=== PATIENT | male | born 1955 | race Caucasian/White ===

== ENCOUNTER 2022-01-09 | Emergency (ER) | payer MEDICARE, MEDICAID, SELFPAY ==
--- NOTE | ~2022-01-09 | XR_ITS ---
EXAMINATION: XR SHOULDER, RIGHT XR HUMERUS, RIGHT CLINICAL INFORMATION: Fall with pain COMPARISON: None TECHNIQUE: 3 views of the right shoulder. 2 views, 3 images of the right humerus. FINDINGS: There is a comminuted proximal humeral diaphyseal fracture. There is posterolateral angulation of the distal fragment. Fracture lines extend proximally to the humeral neck. The glenohumeral joint remains aligned. The acromioclavicular joint is intact. Alignment at the elbow is maintained. The visualized ribs are intact. The visualized lung is clear. XR/XR humerus RT IMPRESSION: Comminuted proximal humeral diaphyseal fracture.
--- NOTE | ~2022-01-09 | XR_ITS ---
EXAMINATION: XR SHOULDER, RIGHT XR HUMERUS, RIGHT CLINICAL INFORMATION: Fall with pain COMPARISON: None TECHNIQUE: 3 views of the right shoulder. 2 views, 3 images of the right humerus. FINDINGS: There is a comminuted proximal humeral diaphyseal fracture. There is posterolateral angulation of the distal fragment. Fracture lines extend proximally to the humeral neck. The glenohumeral joint remains aligned. The acromioclavicular joint is intact. Alignment at the elbow is maintained. The visualized ribs are intact. The visualized lung is clear. XR/XR shoulder RT min 2V IMPRESSION: Comminuted proximal humeral diaphyseal fracture.
--- NOTE | ~2022-01-09 | XR_ITS ---
EXAMINATION: XR KNEE, RIGHT CLINICAL INFORMATION: Fall with pain COMPARISON: None TECHNIQUE: Four views of the right knee. FINDINGS: Total right knee arthroplasty. The femoral component articulates appropriately with the tibial and patellar components. There is no periprosthetic lucency or fracture. No joint effusion. Posterior ossification from the proximal tibia noted. XR/XR knee RT 4V IMPRESSION: Total right knee arthroplasty without evidence of failure.
--- NOTE | ~2022-01-09 | CT_ITS ---
EXAMINATION: CT HEAD WITHOUT CONTRAST CLINICAL INFORMATION: Fall COMPARISON: None. TECHNIQUE: Contiguous axial imaging was performed from the skull base to vertex without intravenous contrast. This CT examination was performed using dose optimization techniques as appropriate, variously including the following: * Automated exposure control * Adjustment of mA and/or kV according to patient size (this includes techniques or standardized protocols for targeted exams where dose is matched to indication/reason for exam; i.e. extremities or head) Use of iterative reconstruction technique DLP: 667 mGy-cm. FINDINGS: There is no evidence of acute intracranial hemorrhage or territorial infarction. No abnormal mass effect or midline shift is seen. Dillon to white matter differentiation is well preserved. No extra-axial fluid collections are identified. No hydrocephalus. No significant volume loss. There is no abnormal attenuation within the brain parenchyma. No acute osseous or soft tissue abnormality. 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 The mastoid air cells and visualized portions of the paranasal sinuses are well aerated. CT/CT head/brain wo con IMPRESSION: No acute intracranial pathology.
[2022-01-09 00:13] VITALS: BP 140/80; PULSE 82; O2SAT 97
[2022-01-09 00:15] VITALS: BP 101/63; PULSE 62; RESP 16; TEMP 37.3; O2SAT 96; BMI 22.1
--- NOTE | 2022-01-09 01:42 | ED.FALL ---
HPI - Fall General Chief Complaint: Fall Stated Complaint: right shoulder and elbow pain due to fall Time Seen by Provider: 01/09/22 00:41 Source: patient and other Mode of arrival: EMS History of Present Illness HPI Narrative: 66-year-old male with known Parkinson's presents via EMS after he fell at home when he tried to grab a bar on getting up from the toilet, missed it and fell onto his right knee and right shoulder. He denies any head strike or loss of consciousness and denies any anticoagulation. He currently complains of pain to the right arm. Related Data Home Medications Medication Instructions Recorded Confirmed carbidopa 25 mg-levodopa 100 mg 1.5 tab PO QID tab 11/25/21 tablet (Sinemet) entacapone 200 mg tablet 200 mg PO QID 11/25/21 lorazepam 0.5 mg tablet (Ativan) 0.5 mg PO BEDTIME PRN 11/25/21 pimavanserin 34 mg capsule 34 mg PO DAILY 11/25/21 (Nuplazid) Previous Rx's Medication Instructions Recorded ketorolac 10 mg tablet 10 mg PO Q6H PRN 5 Days #20 tab 01/09/22 Allergies Allergy/AdvReac Type Severity Reaction Status Date / Time No Known Allergies Allergy Unverified 07/11/20 19:36 [No Known Allergies*] Review of Systems Review of Systems: Pertinent positives and negatives as stated in HPI 10 point review of systems is otherwise negative. PMFSH Past Medical History Source: nursing notes reviewed Physical Exam Vital Signs: Vital Signs: Last Vital Signs Temp 99.1 F 01/09/22 00:15 Pulse 62 01/09/22 00:15 Resp 16 01/09/22 00:15 BP 101/63 01/09/22 00:15 Pulse Ox 96 01/09/22 00:15 BMI result Body Mass Index 22.1 VITAL SIGNS: Reviewed. GENERAL: Well developed, well nourished, in no acute distress. HEAD: Normocephalic/atraumatic EYES: PERRLA, EOMI EARS: Ext canals without abnormality OROPHARYNX: no oral lesions noted, posterior pharynx clear LUNGS: Normal breath sounds. No adventitious sounds or accessory muscle use. SpO2<96>;CHEST WALL: No crepitus or deformity noted, no clavicular deformity noted CARDIOVASCULAR: Regular rate and rhythm without noted murmurs ABDOMEN: Soft, non-tender, non-distended with bowel sounds. MUSCULOSKELETAL: No tenderness, deformities, or effusions noted on gross inspection. EXTREMITIES: No cyanosis, clubbing or edema;RUE: Deformity noted to arm, sensation intact, palpable ulnar and radial pulse with good capillary refill SKIN: Inspection of the skin reveals no rashes NEUROLOGIC: Alert and oriented x 4. Strength and sensation to light touch were grossly intact x 4. Course Course Course Narrative: 66-year-old male with history and clinical presentation consistent with mechanical fall without head strike or LOC and noted right upper extremity deformity and on review of all investigation is noted to have a comminuted midshaft fracture of the right humerus without noted neurovascular deficits. This case was discussed briefly with the orthopedist on-call who recommends conservative treatment with sling. Patient given pain medication and discharged home in stable condition with instructions to follow up with the orthopedic office in the morning and further discuss conservative versus surgical intervention. Discharge Plan Discharge Clinical Impression: Comminuted right humeral fracture Patient Disposition: Home, Self-Care Instructions: Arm Fracture in Adults (ED), How to Use a Sling (ED) Additional Instructions: 1. Resume all home medications as prescribed. 2. Tylenol 1000 mg, orally, every 6 hours as needed for pain control. Do not exceed 4000 mg within 24 hours. 3. Apply ice to unexposed skin for 10 15 minutes, 3 to 4 times a day. 4. Please call the orthopedic office in the morning, the referral is provided to below. Return to the ER for worsening symptoms. Prescriptions: New ketorolac 10 mg tablet 10 mg PO Q6H PRN (Reason: pain) 5 Days Qty: 20 0RF Rx Instructions: Patient received Toradol here in the emergency room. No Action lorazepam [Ativan] 0.5 mg tablet 0.5 mg PO BEDTIME PRN0RF entacapone 200 mg tablet 200 mg PO QID 0RF Rx Instructions: administer at the same time as l-dopa/carbidopa dose Nuplazid 34 mg capsule 34 mg PO DAILY 0RF carbidopa-levodopa [Sinemet] 25-100 mg tablet 1.5 tab PO QID 0RF Referrals: Mak Turner MD [Physician] - 2 days (Comminuted right humeral fracture, neurovascular intact, patient has history of Parkinson's.)
[2022-01-09] MEDS: Ketorolac Tromethamine 15 MG/ML VIAL IM (02:39)
[2022-01-09] MEDS: Acetaminophen 325 MG TABLET 975 MG PO (02:39)
== END 2022-01-09 03:39 | disposition home or self-care (01) ==
LOC: HO.ED 02:18
PROVIDERS: Emergency Provider Student in an Organized Health Care Education/Training Program; PCP Nurse Practitioner Family
DX: S49.091A Other physeal fracture of upper end of humerus, right arm, initial encounter for closed fracture (principal); W18.12XA Fall from or off toilet with subsequent striking against object, initial encounter; Y93.89 Activity, other specified; Y92.012 Bathroom of single-family (private) house as the place of occurrence of the external cause; Y99.9 Unspecified external cause status
CPT/HCPCS: 70450; 73030; 73060; 73564; 96372; 99283; 99284; J1885

== ENCOUNTER → 2022-01-12 09:21 | Outpatient (BNVA) | payer MEDICARE, MEDICAID, SELFPAY | PROVIDERS: PCP Nurse Practitioner Family; Visit Provider Physician Assistant | DX: S42.301A Unspecified fracture of shaft of humerus, right arm, initial encounter for closed fracture (principal) | CPT/HCPCS: 99202 ==

== ENCOUNTER 2022-01-12 10:39 | Emergency (ER) | payer MEDICARE, MEDICAID, SELFPAY | END 2022-01-12 12:20 | disposition left against medical advice (07) | PROVIDERS: Emergency Provider Emergency Medicine; PCP Nurse Practitioner Family | DX: Z02.2 Encounter for examination for admission to residential institution (principal) ==

== ENCOUNTER → 2022-01-15 13:33 | Outpatient (BNVA) | payer MEDICARE, MEDICAID, SELFPAY | PROVIDERS: PCP Psychiatry & Neurology Neurology; Visit Provider Psychiatry & Neurology Neurology | DX: G20 Parkinson's disease (principal); R44.3 Hallucinations, unspecified; Z91.81 History of falling; Z79.899 Other long term (current) drug therapy | CPT/HCPCS: 99212 ==

== ENCOUNTER 2022-01-20 08:26 | Emergency (ER) | payer MEDICARE, MEDICAID, SELFPAY ==
--- NOTE | ~2022-01-20 | CT_ITS ---
EXAMINATION: CT ABDOMEN AND PELVIS WITHOUT CONTRAST CLINICAL INFORMATION: Multiple falls. Question hip fracture. COMPARISON: None TECHNIQUE: Multidetector volumetric imaging was performed from the superior aspect of the liver through the pubic symphysis. Sagittal and coronal reformatted images were obtained on the technologist's workstation. This CT examination was performed using dose optimization techniques as appropriate, variously including the following: *Automated exposure control *Adjustment of mA and/or kV according to patient size (this includes techniques or standardized protocols for targeted exams where dose is matched to indication/reason for exam; i.e. extremities or head) *Use of iterative reconstruction technique DLP: 987 mGy-cm FINDINGS: LUNG BASES: The visualized lung bases are unremarkable. LIVER, GALLBLADDER, AND BILIARY TREE: There is a 1 cm low-attenuation lesion in the lateral segment of the left lobe of the liver, axial image 18 series 33, probably representing a cyst. There are several other smaller liver lesions that are difficult to characterize but may represent cysts as well in the central liver axial image 24 and near the gallbladder, axial image 29 and 36. The gallbladder is unremarkable. There is no biliary duct dilatation. PANCREAS: Unremarkable. SPLEEN: Unremarkable. ADRENAL GLANDS: Unremarkable. KIDNEYS AND URETERS: The kidneys are normal in size, shape, and attenuation. No hydronephrosis, hydroureter, or calculi seen. No perinephric stranding. BLADDER: Unremarkable. GASTROINTESTINAL TRACT: There is stool throughout the colon suggestive of constipation. There is evidence of diverticulosis. Small and large bowel is otherwise normal. The appendix is normal. The stomach is normal. No ascites or free air is seen. ABDOMINAL WALL: No significant hernia is appreciated. LYMPH NODES: Normal. VASCULAR: There is evidence of atherosclerotic disease. No aneurysm is seen. PELVIC VISCERA: Unremarkable. OSSEOUS STRUCTURES: There is a 7 mm anterior subluxation of L3 with respect to L4. There is question of unilateral right L3 pars defect versus old right L3-L4 facet fracture. There is facet arthritis at this level. There is degenerative disc disease at L3-L4. There is slight loss of height of the superior endplate of the L3 vertebral body suggestive of a mild old compression fracture. There are transverse sclerotic lines in the L3 and L4 vertebral bodies suggestive of old fractures. There is also question of mild old L2 and L5 vertebral body compression fractures versus Schmorl's nodes. Recent-appearing mild compression fracture of the superior endplate of the T12 vertebral body. There is mild scoliosis/curvature of the lumbar spine to the right. No pelvic or hip fracture is seen. CT/CT abdomen pelvis wo con IMPRESSION: No hip or pelvic fracture is seen. 7 mm anterior subluxation of L3 with respect to L4. Degenerative disc disease, facet arthritis at this level and old L3 and L4 vertebral body fractures, question involving the right L3-L4 facet joint. Mild old-appearing compression fracture of the superior endplate of the L3 vertebral body. Mild old-appearing L1 and L4 vertebral body superior endplate compression fractures versus Schmorl's nodes. Recent-appearing mild compression fracture of the superior endplate of the T12 vertebral body. Constipation. Diverticulosis. Atherosclerotic disease. Fleischner guidelines were followed.
--- NOTE | ~2022-01-20 | CT_ITS ---
EXAMINATION: CT CERVICAL SPINE WITHOUT CONTRAST CLINICAL INFORMATION: Multiple falls COMPARISON: None TECHNIQUE: Axial images through the cervical spine without contrast. Sagittal and coronal reconstructions on the technologist workstation were performed. This CT examination was performed using dose optimization techniques as appropriate, variously including the following: *Automated exposure control *Adjustment of mA and/or kV according to patient size (this includes techniques or standardized protocols for targeted exams where dose is matched to indication/reason for exam; i.e. extremities or head) *Use of iterative reconstruction technique DLP: 306 mGy-cm FINDINGS: There is increased cervical kyphosis. Bone alignment is otherwise normal. There is degenerative spondylosis and degenerative disc disease at C3-C4 C4-C5 and C5-C6. There are degenerative changes at the C1 dens articulation. No fracture or dislocation is seen. Prevertebral soft tissues are normal. CT/CT cervical spine wo con IMPRESSION: Degenerative changes. No fracture or dislocation seen. Fleischner guidelines were followed.
--- NOTE | ~2022-01-20 | CT_ITS ---
EXAMINATION: CT HEAD WITHOUT CONTRAST CLINICAL INFORMATION: Multiple falls COMPARISON: Previous head CT 01/09/2022 TECHNIQUE: Contiguous axial imaging was performed from the skull base to vertex without intravenous administration of contrast. This CT examination was performed using dose optimization techniques as appropriate, variously including the following: *Automated exposure control *Adjustment of mA and/or kV according to patient size (this includes techniques or standardized protocols for targeted exams where dose is matched to indication/reason for exam; i.e. extremities or head) *Use of iterative reconstruction technique DLP: 655 mGy-cm FINDINGS: There is no evidence of acute intracranial hemorrhage or territorial infarction. No abnormal mass effect or midline shift is seen. Dillon to white matter differentiation is well preserved. No extra-axial fluid collections are identified. The ventricles are normal in size. There is no abnormal attenuation within the brain parenchyma. The osseous structures and soft tissues are normal. 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 The mastoid air cells and visualized portions of the paranasal sinuses are otherwise clear.. CT/CT head/brain wo con IMPRESSION: Unremarkable exam.
--- NOTE | ~2022-01-20 | CT_ITS ---
EXAMINATION: CT CHEST WITHOUT CONTRAST CLINICAL INFORMATION: Fall. Bruising over right upper ribs. COMPARISON: None. TECHNIQUE: Multidetector volumetric CT imaging of the chest was done. Axial MIP volume rendering provided. Sagittal and coronal reformatted images were obtained. This CT examination was performed using dose optimization techniques as appropriate, variously including the following: *Automated exposure control *Adjustment of mA and/or kV according to patient size (this includes techniques or standardized protocols for targeted exams where dose is matched to indication/reason for exam; i.e. extremities or head) *Use of iterative reconstruction technique DLP: 396 mGy-cm FINDINGS: LUNGS: There is subsegmental atelectasis at the lung bases. The lungs are otherwise clear. MEDIASTINUM: The mediastinum is normal. PLEURA: There is no pleural effusion. No pleural mass or thickening. No pneumothorax. AXILLA: No lymphadenopathy. There is mild swelling of the soft tissues of the right posterior chest wall. OSSEOUS STRUCTURES: There are old bilateral rib fractures. No acute rib fracture is seen. There is an acute compression fracture of the left superior endplate of the T12 vertebral body. There is a mild T7 vertebral body compression fracture versus Schmorl's node. This does not appear acute. CT/CT chest wo con IMPRESSION: Old bilateral rib fractures. No acute rib fracture seen. Recent-appearing mild compression fracture of the left superior endplate of the T12 vertebral body. Mild T7 vertebral body compression fracture versus Schmorl's node. This does not appear acute. Fleischner guidelines were followed.
[2022-01-20 08:38] VITALS: BP 146/78; BP 164/92; PULSE 74; PULSE 75; RESP 16; TEMP 36.4; O2SAT 96; BMI 20.8
--- NOTE | 2022-01-20 09:00 | ED_ITS ---
HPI - General Adult General Chief complaint: Fall Stated complaint: FALLS,NO INJURY,NO THINNERS PER EMS Time Seen by Provider: 01/20/22 08:41 Source: patient Mode of arrival: ambulatory Limitations: no limitations History of Present Illness HPI narrative: 66-year-old male with past medical history of severe Parkinson's causing abnormal gait, hallucinations at baseline, and humural right shaft closed fracture occurring 7 days ago brought by for jail or short-term rehab placement. Girlfriend states patient can no longer take care of himself due to severe Parkinson's. She states surgeon recommend patient come to the for jail or short-term rehab placement couple days ago but due to long wait in the ED she apprehensive and took the patient home but now realizes patient needs 24 hour care. She states Parkinson's has cause severe abnormal gait which caused him to fall multiple times. She states she got patient's hospital bed, toilet needs room has cameras all over in his room patient still falls multiple times. She states this morning she found patient sitting on the toilet and was stuck in the toilet chair not able to get up on his own due to Parkinson's. She states patient was not supposed to go to the bathroom on his own but due to Parkinson's has to frequently gets up from the bed for urinary urgency and prefers to go to the bathroom instead of using the portable toilet in his bed. She states since patient was seen in the ED he has had multiple falls. She states last visit patient had humeral fracture 7 days ago. Patient has a new bruise on right chest wall from fall couple of days ago. She states patient also been constipated for the past 12 days. Related Data Home Medications Medication Instructions Recorded Confirmed pimavanserin 34 mg capsule 34 mg PO DAILY 11/25/21 01/20/22 (Nuplazid) acetaminophen 325 mg tablet 650 mg PO Q6H PRN 01/20/22 01/20/22 (Tylenol) carbidopa 25 mg-levodopa 100 mg 1.5 tab PO QID 01/20/22 01/20/22 tablet naproxen 500 mg tablet 1 tab PO BID 01/20/22 01/20/22 Previous Rx's Medication Instructions Recorded oxycodone 5 mg tablet 5 mg PO Q6H PRN 7 Days #42 tab 01/12/22 entacapone 200 mg tablet 200 mg PO QID #120 tab 01/15/22 Allergies Allergy/AdvReac Type Severity Reaction Status Date / Time No Known Allergies Allergy Verified 01/15/22 13:39 [No Known Allergies*] Review of Systems Review of Systems: Frequent falls. Requesting rehab Yes all other systems a re reviewed and are negative [facility] Past Medical History Medical History (Updated 01/20/22 @ 18:31 by CAYLA Landin) Falls Hallucinations Parkinson disease Social History Social History Patient Tobacco Use Status: Former Tobacco user Smoked in Last 30 Days: No Use of substances other than those prescribed or required for medical reasons: Yes Substance Use Type: Marijuana Advance Directives: No Advance Directives Information Provided: Yes Current occupational status: disabled Current occupation: rt [employer] Physical Exam ED Vital Signs: Vital Signs - 24 hr 01/20/22 08:38 01/20/22 09:56 01/20/22 12:39 Temperature 97.6 F 97.6 F Pulse Rate 75 65 79 Respiratory Rate 16 16 18 Blood Pressure 146/78 H 132/76 131/69 Pulse Oximetry 96 98 97 01/20/22 14:26 01/20/22 17:41 Temperature 97.7 F Pulse Rate 85 81 Respiratory Rate 18 16 Blood Pressure 113/65 105/54 L Pulse Oximetry 96 98 BMI result Body Mass Index 20.8 Const General: cooperative, healthy appearing, comfortable, no acute distress, well developed, alert, awake and Physically active Orientation/consciousness: patient oriented x3 HENMT Head: Yes normal to inspection, Yes No palpable skull fracture present, Yes normocephalic, Yes atraumatic and No abrasion Eyes General: appearance normal, both eyes and all related structures Neck Neck: Yes normal visual inspection, Yes full ROM, Yes no lymphadenopathy, Yes no meningeal signs, Yes trachea midline, Yes supple, No anterior neck swelling and No tender Chest Chest palpation & inspection: normal inspection of the chest Chest/axillae images: 1. Positive for ecchymosis and tenderness on palpation Resp Effort & Inspection: normal respiratory effort and able to speak in complete sentences Auscultation: clear to auscultation bilaterally Cardio Jugular venous distension: no JVD Heart sounds: S1 normal heart sound present and S2 normal heart sound present GI Inspection: Yes normal to inspection and No abdominal wall ecchymosis Palpation (GI): Soft to palpation, not firm, nontender, no guarding and not rigid General: No CVA tenderness and Yes no CVA tenderness Back/Spine/Pelvis Back: no CVA tenderness, No CVA tenderness and No back tenderness Skin General skin exam: no rashes or lesions noted and elasticity normal Neuro Other: Negative for any neuro deficits. Negative slurred speech. Negative facial droop. negative pronator drift. Equal strength in extremities. General: patient oriented x3, gait normal, tone normal, no meningeal signs and CN's II-XI intact bilaterally Cranial nerves: Yes CN's II-XII intact bilaterally Extrem Other: All other extremities normal and negative for signs of trauma endovascular/motor/neuro exam intact Shoulder/upper arm images: 1. Positive for ecchymosis from humeral fracture occurring 7 days ago done diagnose in this ED. Girlfriend states swelling has actually improved. Patient has complete range of motion of hands and fingers. Vascular/motor/neuro exam intact right upper extremity. Movement of forearm humerus limited due to humerus fracture and patient being in sling and compression stocking of upper extremity. Skin is not tight. Capillary refill of fingers intact. Not suspecting compartment syndrome. Psych Appearance: grossly normal, well kempt and not disheveled Course Course Course Narrative: Planus a patient of physical therapy case management evaluation. Will do basic labs. Patient well-appearing. Due to 's 8 frequent falls due to Parkinson's and abnormal gait will do imaging of head and neck for any injury. Patient has new right upper rib chest wall ecchymosis will do imaging of chest. Patient on any blood thinners. Abdomen negative for any ecchymosis or signs of trauma. Will do dry CT scan of abdomen and chest. Fluids ordered. Reevaluation(s) Reevaluation #1: Patient labs are normal. Patient evaluated by Physical therapy recommend short- term rehab. Patient does not want any long-term placement. Med rec started. Images shows 2 new thoracic spine fractures. Neuro exam intact of patient. Time: 18:19 Medical Decision Making MDM Narrative Medical decision making narrative: thoracic compression spine fractures Lab Data Result diagrams: 01/20/22 09:32 01/20/22 09:32 Labs: Lab Results 01/20/22 01/20/22 01/20/22 Range/Units 09:32 09:32 09:32 WBC 6.6 (4.8-10.8) X10*3/uL RBC 3.23 L (4.60-5.80) X10*6/uL Hgb 10.2 L (14.0-18.0) g/dl Hct 31.4 L (42.0-52.0) % MCV 97.2 (80.0-98.0) fL MCH 31.6 (27.0-33.0) pg MCHC 32.5 (31.0-36.0) g/dl RDW 13.8 (11.0-16.0) % Plt Count 254 (160-400) X10*3/uL MPV 9.0 L (9.4-12.4) fL Immature Gran % (Auto) 0.3 (0.0-0.4) % Neut % (Auto) 78.8 H (45-73) % Lymph % (Auto) 10.4 L (20-40) % [place] % (Auto) 8.5 (2-11) % Eos % (Auto) 1.4 (0-4) % Baso % (Auto) 0.6 (0-2) % Lymph # (Auto) 0.7 L (1.2-4.9) X10*3/uL [place] # (Auto) 0.6 (0.1-1.2) X10*3/uL Eos # (Auto) 0.1 (0.0-0.4) X10*3/uL Baso # (Auto) 0.0 (0.0-0.2) X10*3/uL Abs Immat Gran (auto) 0.02 (0.00-0.03) X10*3/uL Absolute Neuts (auto) 5.2 (2.0-8.3) x10*3/uL Absolute Nucleated RBC 0.000 (0.0-0.012) X10*3/uL Nucleated RBC % (auto) 0.0 (0.0-0.2) /100WBC Sodium 141 (135-145) mmol/L Potassium 4.2 (3.3-5.1) mmol/L Chloride 107 (96-108) mmol/L Carbon Dioxide 30 H (22-29) mmol/L Anion Gap 8 L (12-20) BUN 18 H (9-16) mg/dL Creatinine 0.70 (0.5-1.4) mg/dL Estim Creat Clear Calc 108.0 Estimated GFR > 60 Random Glucose 102 (60-115) mg/dL Calcium 8.9 (8.4-10.2) mg/dL Total Bilirubin 0.8 (0.0-1.0) mg/dL Direct Bilirubin 0.3 (0.0-0.5) mg/dL AST 9 (5-37) U/L ALT 7 (0-40) U/L Alkaline Phosphatase 56 (39-117) U/L Total Protein 5.9 L (6.5-8.0) g/dL Albumin 3.7 (3.5-5.0) g/dL Urine Color Urine Appearance Urine pH (5.0-8.0) Ur Specific [place] (1.005-1.025) Urine Protein (NEG-TRACE) MG/DL Urine Glucose (UA) (NEG) MG/DL Urine Ketones (NEG) MG/DL Urine Blood (NEG) Urine Nitrite (NEG) Ur Leukocyte Esterase (NEG) COVID-19 (MIKHAIL) Negative (Negative) COVID-19 Clin Com See Note 01/20/22 Range/Units 09:39 WBC (4.8-10.8) X10*3/uL RBC (4.60-5.80) X10*6/uL Hgb (14.0-18.0) g/dl Hct (42.0-52.0) % MCV (80.0-98.0) fL MCH (27.0-33.0) pg MCHC (31.0-36.0) g/dl RDW (11.0-16.0) % Plt Count (160-400) X10*3/uL MPV (9.4-12.4) fL Immature Gran % (Auto) (0.0-0.4) % Neut % (Auto) (45-73) % Lymph % (Auto) (20-40) % [place] % (Auto) (2-11) % Eos % (Auto) (0-4) % Baso % (Auto) (0-2) % Lymph # (Auto) (1.2-4.9) X10*3/uL [place] # (Auto) (0.1-1.2) X10*3/uL Eos # (Auto) (0.0-0.4) X10*3/uL Baso # (Auto) (0.0-0.2) X10*3/uL Abs Immat Gran (auto) (0.00-0.03) X10*3/uL Absolute Neuts (auto) (2.0-8.3) x10*3/uL Absolute Nucleated RBC (0.0-0.012) X10*3/uL Nucleated RBC % (auto) (0.0-0.2) /100WBC Sodium (135-145) mmol/L Potassium (3.3-5.1) mmol/L Chloride (96-108) mmol/L Carbon Dioxide (22-29) mmol/L Anion Gap (12-20) BUN (9-16) mg/dL Creatinine (0.5-1.4) mg/dL Estim Creat Clear Calc Estimated GFR Random Glucose (60-115) mg/dL Calcium (8.4-10.2) mg/dL Total Bilirubin (0.0-1.0) mg/dL Direct Bilirubin (0.0-0.5) mg/dL AST (5-37) U/L ALT (0-40) U/L Alkaline Phosphatase (39-117) U/L Total Protein (6.5-8.0) g/dL Albumin (3.5-5.0) g/dL Urine Color DK YELLOW Urine Appearance HAZY Urine pH 7.0 (5.0-8.0) Ur Specific [place] 1.020 (1.005-1.025) Urine Protein NEG (NEG-TRACE) MG/DL Urine Glucose (UA) NEG (NEG) MG/DL Urine Ketones NEG (NEG) MG/DL Urine Blood NEG (NEG) Urine Nitrite NEG (NEG) Ur Leukocyte Esterase NEG (NEG) COVID-19 (MIKHAIL) (Negative) COVID-19 Clin Com Discharge Plan Discharge Clinical Impression: Vertebral compression fracture Patient Disposition: Still a Patient Prescriptions: No Action oxycodone 5 mg tablet 5 mg PO Q6H PRN (Reason: pain) 7 Days Qty: 42 0RF carbidopa-levodopa 25-100 mg tablet 1.5 tab PO QID 0RF naproxen 500 mg tablet 1 tab PO BID 0RF acetaminophen [Tylenol] 325 mg Tablet 650 mg PO Q6H PRN (Reason: Pain) 0RF Nuplazid 34 mg capsule 34 mg PO DAILY 0RF entacapone 200 mg tablet 200 mg PO QID Qty: 120 3RF Rx Instructions: administer at the same time as l-dopa/carbidopa dose
[2022-01-20 09:41] LABS: MANUAL DIFF FLAG NO
[2022-01-20 09:44] LABS: Basophils Percent Auto 0.6 % (0-2); Eosinophils Absolute Auto 0.1 X10*3/uL (0.0-0.4); Eosinophils Percent Auto 1.4 % (0-4); Hematocrit 31.4 % (42.0-52.0); Hemoglobin 10.2 g/dl (14.0-18.0); Imm Gran Abs Auto 0.02 X10*3/uL (0.00-0.03); Imm Gran Pct Auto 0.3 % (0.0-0.4); Lymphocytes Absolute Auto 0.7 X10*3/uL (1.2-4.9); Lymphocytes Percent Auto 10.4 % (20-40); Mean Corpuscular HGB Conc 32.5 g/dl (31.0-36.0); Mean Corpuscular Hemoglobin 31.6 pg (27.0-33.0); Mean Corpuscular Volume 97.2 fL (80.0-98.0); Monocytes Absolute Auto 0.6 X10*3/uL (0.1-1.2); Monocytes Percent Auto 8.5 % (2-11); Neutrophils Absolute Auto 5.2 x10*3/uL (2.0-8.3); Neutrophils Percent Auto 78.8 % (45-73); Platelet Count 254 X10*3/uL (160-400); Red Blood Count 3.23 X10*6/uL (4.60-5.80); Red Cell Distribution Width 13.8 % (11.0-16.0); White Blood Count 6.6 X10*3/uL (4.8-10.8)
[2022-01-20 09:44] LABS: Appearance Urine HAZY; Color Urine DK YELLOW; Glucose Urine UA NEG (NEG); Leukocyte Esterase Urine NEG (NEG); Nitrite Urine NEG (NEG); Urine Blood NEG (NEG); Urine Ketones NEG (NEG); Urine Protein NEG (NEG-TRACE)
[2022-01-20 09:53] LABS: COVID-19 Test Negative (Negative); IDNOW Serial# 16C4AD1C
[2022-01-20 09:56] VITALS: BP 132/76; PULSE 65; RESP 16; O2SAT 98
[2022-01-20 10:00] LABS: Alanine Aminotransferase 7 U/L (0-40); Albumin Level 3.7 g/dL (3.5-5.0); Alkaline Phosphatase 56 U/L (39-117); Anion Gap 8 (12-20); Aspartate Amino Transferase 9 U/L (5-37); Bilirubin Direct 0.3 mg/dL (0.0-0.5); Bilirubin Total 0.8 mg/dL (0.0-1.0); Blood Urea Nitrogen 18 mg/dL (9-16); Calcium 8.9 mg/dL (8.4-10.2); Carbon Dioxide 30 mmol/L (22-29); Chloride 107 mmol/L (96-108); Estimated Glomerular Filt Rate > 60; Glucose Random 102 mg/dL (60-115); Potassium 4.2 mmol/L (3.3-5.1); Sodium 141 mmol/L (135-145); Total Protein 5.9 g/dL (6.5-8.0)
--- NOTE | 2022-01-20 10:13 | PHA.MEDREC ---
Pharmacy Consult ? Medication Reconciliation Pharmacy has completed the medication reconciliation. No remarkable issues. Cynthia Erwin, LizD
[2022-01-20 12:39] VITALS: BP 131/69; PULSE 79; RESP 18; TEMP 36.4; O2SAT 97
[2022-01-20 14:26] VITALS: BP 113/65; PULSE 85; RESP 18; TEMP 36.5; O2SAT 96
--- NOTE | 2022-01-20 15:54 | MHC.CM.ED ---
Received case management consult from Shady KULKARNI. Patient came to ER due to fall. Work up essentially negative. However, patient already has humerus fracture from previous fall. Met with patient and , Bela in regards to discharge planning. Patient lives with Bela, has been using a cane for mobility and had no services prior to coming to the ER. PCP verified. HCP completed, signed and witnessed. Original given to patient. Copy placed in chart. Patient has not received any Covid vaccines. Patient originally declining to go to short term rehab because I just want to go home. After lengthy discussion with patient and , patient is agreeable to rehab. List of facilities provided to patient and Bela. Facility choices are: 1)[facility] 2) [facility] 3) [facility] 4) [facility] 5) [facility] and 6) [facility]. Referral made via [employer]. Continue to monitor for d/c needs.
--- NOTE | 2022-01-20 17:00 | MHC.CM.ED ---
No bed offers yet. Waiting on [facility] and [facility]. HCP reviewed, completed and signed. HCP/Tod Nixon ([phone]). Pt to remain in ED overnight pending STR. CM to follow for d/c needs.
[2022-01-20 17:41] VITALS: BP 105/54; PULSE 81; RESP 16; O2SAT 98
[2022-01-20] MEDS: Carbidopa/Levodopa 25/100 TABLET 1.5 TAB PO ×2 (18:05→20:33)
[2022-01-20] MEDS: NaPROXEN 500 MG TABLET PO (20:34)
[2022-01-20 23:12] VITALS: BP 105/69; PULSE 76; RESP 14; O2SAT 98
[2022-01-21] MEDS: oxyCODONE HCl Immed Release 5 MG TABLET PO (00:47)
[2022-01-21 01:30] VITALS: BP 127/68; PULSE 70; RESP 16; TEMP 36.7; O2SAT 98
[2022-01-21 03:18] VITALS: PULSE 74; RESP 18; O2SAT 97
[2022-01-21 08:14] VITALS: BP 130/77; PULSE 80; RESP 14; TEMP 36.6; O2SAT 97
--- NOTE | 2022-01-21 08:33 | MHC.CM.ED ---
Addendum entered by Polina Chapman 01/21/22 11:11: [facility] is requesting family bring Nuplazid for patient. T/W spoke with Bela via telephone. She will be in the ER this afternoon and has a full bottle of the prescription for the patient. [facility] aware. Original Note: Patient remains in ER. Still waiting to see if [facility] has a bed to offer patient. Continue to monitor for d/c needs.
[2022-01-21] MEDS: NaPROXEN 500 MG TABLET PO (09:21)
[2022-01-21] MEDS: Carbidopa/Levodopa 25/100 TABLET 1.5 TAB PO ×2 (09:23→12:28)
--- NOTE | 2022-01-21 12:56 | MHC.CM.ED ---
Addendum entered by Polina Chapman 01/21/22 14:07: [facility], [facility] and [facility] are willing to offer a bed. Spoke with Bela via telephone at [phone]. Bela chooses [facility]. [facility] booked for 4pm. Original Note: [facility] is not able to offer a bed. Referral broadcasted within 20 miles of patient's home. Continue to monitor for d/c needs.
[2022-01-21 15:13] VITALS: BP 115/62; PULSE 82; RESP 16; TEMP 36.6; O2SAT 97
--- NOTE | 2022-01-21 18:42 | PC.NURSE ---
pt eloped not at bedside at this time. provider aware.
--- NOTE | 2022-01-21 18:46 | PC.NURSE ---
hpd contacted that pt eloped from er- pa requesting pt return
--- NOTE | 2022-01-21 18:56 | PC.NURSE ---
contacted- states well he has done this before! reports she is waiting at the facility for pt and is going to start making her way to [facility] area. made aware we have contacted [employer] and are going to try to get him back to [facility] ED.
--- NOTE | 2022-01-21 19:57 | PC.NURSE ---
Daughter Estephanie calling for an update. This RN contacting [facility], no further information available @ this time regarding pts whereabouts.
== END 2022-01-21 19:00 | disposition left against medical advice (07) ==
PROVIDERS: Physician Assistant; Emergency Provider Emergency Medicine; PCP Nurse Practitioner Family
DX: S42.301A Unspecified fracture of shaft of humerus, right arm, initial encounter for closed fracture (principal); M79.601 Pain in right arm; F12.90 Cannabis use, unspecified, uncomplicated; W01.0XXA Fall on same level from slipping, tripping and stumbling without subsequent striking against object, initial encounter; Y93.9 Activity, unspecified; Y92.9 Unspecified place or not applicable; Y99.9 Unspecified external cause status; Z79.899 Other long term (current) drug therapy; Z20.822 Contact with and (suspected) exposure to COVID-19
CPT/HCPCS: 36415; 70450; 71250; 72125; 74176; 80053; 81003; 82248; 85025; 87635; 97163; 99285

== ENCOUNTER 2022-01-21 20:47 | Emergency (ER) | payer MEDICARE, MEDICAID, SELFPAY ==
--- NOTE | 2022-01-21 20:58 | ED.PSYCH ---
HPI - Psych General Chief Complaint: General Medical Stated Complaint: crisis Time Seen by Provider: 01/21/22 20:56 Source: patient and family Mode of arrival: EMS Limitations: no limitations History of Present Illness HPI Narrative: This is a 66-year-old male presenting to the emergency department after eloping from our facility he was found by family member is in [place]. Family members called EMS and they brought him back to our facility. Per family members [facility] is expecting him. He just needs to be discharge from here. Patient has no complaints he appears well in no distracting injuries are evident signs of trauma. Relieving factors: none Exacerbating factors: none Related Data Home Medications Medication Instructions Recorded Confirmed pimavanserin 34 mg capsule 34 mg PO DAILY 11/25/21 01/20/22 (Nuplazid) acetaminophen 325 mg tablet 650 mg PO Q6H PRN 01/20/22 01/20/22 (Tylenol) carbidopa 25 mg-levodopa 100 mg 1.5 tab PO QID 01/20/22 01/20/22 tablet naproxen 500 mg tablet 1 tab PO BID 01/20/22 01/20/22 Previous Rx's Medication Instructions Recorded oxycodone 5 mg tablet 5 mg PO Q6H PRN 7 Days #42 tab 01/12/22 entacapone 200 mg tablet 200 mg PO QID #120 tab 01/15/22 Allergies Allergy/AdvReac Type Severity Reaction Status Date / Time No Known Allergies Allergy Verified 01/15/22 13:39 [No Known Allergies*] Review of Systems Review of Systems: Unable to obtain due to patient's mental status Yes Unobtainable due to mental status PMFSH Past Medical History Attestation statement: The following information was validated with the patient. Source: old records reviewed and nursing notes reviewed Medical History (Updated 01/21/22 @ 21:33 by CAYLA Lamas) Falls Hallucinations Parkinson disease Social History Social History Patient Tobacco Use Status: Former Tobacco user Substance Use Type: Marijuana Advance Directives: No Current occupational status: disabled Current occupation: rt hAND Physical Exam Vital Signs: Vital Signs: Last Vital Signs Temp 98.5 F 01/21/22 21:32 Pulse 84 01/21/22 21:32 Resp 18 01/21/22 21:32 BP 141/77 H 01/21/22 21:32 Pulse Ox 98 01/21/22 21:32 BMI result Body Mass Index 23.6 VSS Appearance: Alert, awake oriented to person. No acute distress.? Well-appearing. No evidence signs of trauma. Head: Normocephalic, atraumatic, no step-offs or deformities Eyes: Pupils equal, round and reactive to light.? ENT: Pharynx normal.? Neck: Normal inspection.? Neck supple.? CVS: Normal heart rate and rhythm.? Pulses normal.? Respiratory: No respiratory distress.? Breath sounds normal.? Abdomen: Soft and nontender.? Skin: Skin warm and dry.? Normal skin color.? Normal skin turgor.? Extremities: No lower extremity edema.? No calf ttp. 4/5 strength to left upper and lower extremities. R. upper extremity w/ humeral fx in sling 2+ radial pulses equal and b/l. Pain with palpation of RUE. Capillary refill to b/l upper extremities 2+ equal and b/l Back: No midline tenderness, no C-spine tenderness, full range of motion, no CVA tenderness bilaterally Neuro: Awake, alert, oriented to person. Moving all extremities. Appears to be in no acute distress. No motor deficit.? No sensory deficit. CN 2-12 intact . Ambulating with steady gait. Course Reevaluation(s) Reevaluation #1: At this time patient will be discharged to [facility] in [facility] via private vehicle. Comfortable w/ plan . Time: 21:35 MDM - Psych MDM Narrative Medical decision making narrative: 2100 66-year-old male presents after eloping from our facility. He was found by his family member who called EMS to bring him back. To note patient was medically cleared from our facility we were just waiting for ambulance transport. While waiting for transport patient eloped. Physical exam benign other than pain to RUE due to humeral fx. Ecchymosis, edema noted however bilateral radial pulses and capillary refill within normal limits. No focal neuro deficits. Sensation and motor intact to bilateral upper extremities. Not concerning for compartment syndrome No need for lab work or imaging at this time. It does not appear as though there are any evidence signs of trauma. No recent falls. Patient appears well. No complaints. Family at bedside and patient also refusing repeat labwork. Plan at this time is to discharge him to snf facility [facility] Medical Records Attestation: I reviewed the patient's medical records. Lab Data Attestation: I reviewed the patient's lab results. Critical Care Time Critical Care Time Critical Care Time: No Discharge Plan Discharge Clinical Impression: Parkinson's disease, Humeral fracture Patient Disposition: Home, Self-Care Instructions: Parkinson Disease (ED) Additional Instructions: Take your medications as prescribed. If you were prescribed antibiotics today, it is important that you take your medication to their entirety, do not skip any doses, do not finish them early. Follow-up with your primary care provider this week. He should follow up with Ortho for this humeral fracture. Return to the emergency department with new or worsening symptoms. Such as fevers, chills, chest pain, shortness of breath, nausea, vomiting, dizziness, headache, vision changes, lethargy In case of emergency call 911 You will be transferring patient to [facility] Via Private Vehicle. You refused ambulance transport. Please hand them all the paperwork provided. Prescriptions: No Action oxycodone 5 mg tablet 5 mg PO Q6H PRN (Reason: pain) 7 Days Qty: 42 0RF carbidopa-levodopa 25-100 mg tablet 1.5 tab PO QID 0RF naproxen 500 mg tablet 1 tab PO BID 0RF acetaminophen [Tylenol] 325 mg Tablet 650 mg PO Q6H PRN (Reason: Pain) 0RF Nuplazid 34 mg capsule 34 mg PO DAILY 0RF entacapone 200 mg tablet 200 mg PO QID Qty: 120 3RF Rx Instructions: administer at the same time as l-dopa/carbidopa dose Referrals: Mak Turner MD [Physician] - 1 week Physician,Payton J [Primary Care Provider] - 2 days
[2022-01-21 21:32] VITALS: BP 141/77; PULSE 84; RESP 18; TEMP 36.9; O2SAT 98; BMI 23.6
--- NOTE | 2022-01-21 21:55 | PC.NURSE ---
at bedside requesting to drive patient to rehab in [place] herself. This RN contacting Rehab, Rehab agreeable to accepting pt if he arrives by private car. PA and MD Elliott aware. Pt and family provided with DC paperwork, nursing supervisor boarding aware of dispo.
== END 2022-01-21 22:01 | disposition home or self-care (01) ==
PROVIDERS: Emergency Provider Internal Medicine
DX: M79.621 Pain in right upper arm (principal); G20 Parkinson's disease; S42.301D Unspecified fracture of shaft of humerus, right arm, subsequent encounter for fracture with routine healing; X58.XXXD Exposure to other specified factors, subsequent encounter; Z91.81 History of falling
CPT/HCPCS: 99282; 99283

== ENCOUNTER 2022-02-16 08:11 | Outpatient (REF) | payer MEDICARE, MEDICAID, SELFPAY ==
--- NOTE | ~2022-02-16 | XR_ITS ---
EXAMINATION: XR HUMERUS, RIGHT CLINICAL INFORMATION: Fracture shaft humerus. COMPARISON: Right humerus 01/09/2022 TECHNIQUE: AP and lateral views of the right humerus. FINDINGS: There is interval total disruption and displacement of a comminuted right proximal humeral fracture consistent with worsening and may need intervention. There is no dislocation. The soft tissues are swollen. There are old upper right posterior rib fractures. XR/XR humerus RT IMPRESSION: Worsening of comminuted right proximal humeral fracture and may need intervention.
== END 2022-02-16 08:12 | disposition home or self-care (01) ==
LOC: HO.HOSX 08:11
PROVIDERS: Visit Provider Physician Assistant
DX: S42.301A Unspecified fracture of shaft of humerus, right arm, initial encounter for closed fracture (principal); G20 Parkinson's disease
CPT/HCPCS: 73060; 99212

== ENCOUNTER → 2022-02-26 08:04 | Outpatient (BNVA) | payer MEDICARE, MEDICAID, SELFPAY | PROVIDERS: PCP Nurse Practitioner Family; Visit Provider Psychiatry & Neurology Neurology | DX: Z13.89 Encounter for screening for other disorder (principal) ==

== ENCOUNTER 2022-03-09 07:35 | Outpatient (REF) | payer MEDICARE, MEDICAID, SELFPAY ==
--- NOTE | ~2022-03-09 | XR_ITS ---
EXAMINATION: XR HUMERUS, RIGHT CLINICAL INFORMATION: Prior COMPARISON: 02/16/2022 and 01/09/2022 TECHNIQUE: AP and lateral views of the right humerus. XR/XR humerus RT FINDINGS/IMPRESSION: Comminuted, displaced and angulated proximal humeral diaphyseal fracture, associated with some areas of associated callus formation, however whether or not this callus is bridging or functional is unclear from a radiographic standpoint. There is increased apex posterior angulation compared to the prior exam. Alignment in the frontal projection is slightly improved.
== END 2022-03-09 07:36 | disposition home or self-care (01) ==
LOC: HO.HOSX 07:35
PROVIDERS: Visit Provider Physician Assistant
DX: S42.301D Unspecified fracture of shaft of humerus, right arm, subsequent encounter for fracture with routine healing (principal)
CPT/HCPCS: 73060; 99212

== ENCOUNTER 2022-05-04 07:11 | Outpatient (REF) | payer MEDICARE, MEDICAID, SELFPAY ==
--- NOTE | ~2022-05-04 | XR_ITS ---
EXAMINATION: XR SHOULDER, RIGHT CLINICAL INFORMATION: Pain. COMPARISON: Radiographs dated 01/09/2022. TECHNIQUE: AP external rotation, Grashey, scapular Y, and axillary views of the right shoulder are submitted. FINDINGS: A comminuted proximal humeral shaft fracture is redemonstrated. The distal fracture fragment now appears laterally displaced by greater than one shaft width. There is significantly increased distraction of butterfly fracture fragments. Smaller distracted comminution fragments are noted. There is good new callus formation noted. The glenohumeral joint appears somewhat subluxed, without karson dislocation. There are old, healed upper right rib fractures. There is soft tissue swelling. No pneumothorax is seen. XR/XR shoulder RT min 2V IMPRESSION: A comminuted proximal right humeral shaft fracture is redemonstrated. There is increased lateral displacement of the distal shaft fragment, and increased distraction is as well seen of butterfly fragments. There is significant new callus formation.
== END 2022-05-04 07:12 | disposition home or self-care (01) ==
LOC: HO.HOSX 07:11
PROVIDERS: Visit Provider Physician Assistant
DX: M25.511 Pain in right shoulder (principal)
CPT/HCPCS: 73030

== ENCOUNTER → 2022-05-07 07:37 | Outpatient (BNVA) | payer MEDICARE, MEDICAID, SELFPAY | PROVIDERS: PCP Nurse Practitioner Family; Visit Provider Psychiatry & Neurology Neurology | DX: G20 Parkinson's disease (principal); R44.3 Hallucinations, unspecified; Z91.81 History of falling | CPT/HCPCS: Q3014 ==

== ENCOUNTER 2022-07-06 08:33 | Outpatient (REF) | payer MEDICARE, MEDICAID, SELFPAY ==
--- NOTE | ~2022-07-06 | XR_ITS ---
EXAMINATION: XR HUMERUS, RIGHT CLINICAL INFORMATION: Follow-up fracture. COMPARISON: 03/09/2022 and 05/04/2022 TECHNIQUE: AP and lateral views of the right humerus. FINDINGS: Again noted is a comminuted fracture of the proximal humeral diaphysis with humeral varus deformity. There is approximately 30 degrees medial angulation of the distal humeral fragment. Multiple displaced fragments, including 9.6 cm long butterfly fragment, at the fracture site, with persistent distraction and fracture lucency between fragments. There is no osseous union between the distal humeral shaft and proximal humerus. The humeral head maintains its articulation with the glenoid. There is mild osteoarthrosis of the acromioclavicular joint. A few old healed rib fractures are noted. XR/XR humerus RT IMPRESSION: There is lack of osseous union of the displaced, angulated, comminuted fracture of the proximal humeral diaphysis.
== END 2022-07-06 08:34 | disposition home or self-care (01) ==
LOC: HO.HOSX 08:33
PROVIDERS: Visit Provider Physician Assistant
DX: S42.301D Unspecified fracture of shaft of humerus, right arm, subsequent encounter for fracture with routine healing (principal)
CPT/HCPCS: 73060; 99212

== ENCOUNTER 2023-07-28 08:57 | Outpatient (AMB) | payer MEDICARE, MEDICAID, SELFPAY ==
--- NOTE | 2023-07-28 08:59 | A.OFFVIS_ITS ---
Intake Vital Signs 07/28/23 09:04 Height 6 ft Weight 168 lb 6 oz BMI 22.8 BP 120/70 Blood Pressure Location Lt brachial Position Sitting Pulse 61 Pulse Source Pulse Oximeter Pulse Oximetry (%) 95 Oxygen Delivery Method Room Air Intake Visit Reasons: 3m follow up Parkinson - Confirmed Intake Note: F/U Parkinsons Tube Wrapper Required: No HPI HPI Comments History of Present Illness Details 67 y/o male with Parkinson's disease r/t psychosis, multiple falls presents with his for follow up. Pt's reports that he did not have any major falls since the last visit. Pt reports his dyskinesias has been better and hallucination almost resolved with Nuplazid 34 mg. His sleep still up and down, but overall sleeps better and his mind is more calm and clear. He finished home PT and OT. His movement also has been stable, uses cane at home. He is on Sinemet 1.5 tabs six times a day. He has home health clinical liaison, and get help 7 days a week. Neuropathy has improved with b 12. [facility] Medical History Falls Hallucinations Parkinson disease Surgical History (Updated 07/28/23 @ 09:04 by Leyla Villagomez CMA) H/O total knee replacement Social History (Updated 07/28/23 @ 09:04 by Leyla Villagomez CMA) Alcohol intake: never Patient Tobacco Use Status: Former Tobacco user Substance Use Type: Marijuana Current occupational status: disabled Current occupation: rt hAND Review of Systems Const All systems reviewed & are unremarkable except as noted in HPI and below Physical Exam Const General: cooperative Orientation/consciousness: patient oriented x3 Limitations: ambulation with cane Resp Effort & Inspection: normal respiratory effort and able to speak in complete sentences Neuro Other: Moderate dyskinesias of upper body. speech - slurred walking with good steps. General: patient oriented x3 Extrem Other: right upper extremity weakness. Psych Affect: normal affect Assessment & Plan Assessment & Plan (1) Parkinson's disease: Code(s): G20 - Parkinson's disease (2) Hallucinations: Code(s): R44.3 - Hallucinations, unspecified (3) Falls: Code(s): W19.XXXA - Unspecified fall, initial encounter Plan Advised patient to continue sinemet 25/100 1.5 tab 6 times a day. continue nuplazid 34 mg qd and comtan 200 mg qid. Continue to use cane. Coding Level of Care Code Est Pt Level 3 (50710) Diagnoses Parkinson's disease G20 Hallucinations R44.3 Falls W19.XXXA
[2023-07-28 09:04] VITALS: BP 120/70; PULSE 61; O2SAT 95; BMI 22.8
== END 2023-07-28 09:28 | disposition home or self-care (01) ==
PROVIDERS: Visit Provider Nurse Practitioner Family
DX: G20.B1 Parkinson's disease with dyskinesia, without mention of fluctuations (principal); R44.3 Hallucinations, unspecified; R29.6 Repeated falls
CPT/HCPCS: 99213

== ENCOUNTER → 2023-07-28 08:57 | Outpatient (BNVA) | payer MEDICARE, MEDICAID, SELFPAY | PROVIDERS: Visit Provider Nurse Practitioner Family | DX: G20.C Parkinsonism, unspecified (principal); R44.3 Hallucinations, unspecified; R29.6 Repeated falls; Z79.899 Other long term (current) drug therapy | CPT/HCPCS: 99212 ==

== ENCOUNTER 2024-01-03 09:01 | Outpatient (AMB) | payer MEDICARE, MEDICAID, SELFPAY ==
--- NOTE | 2024-01-03 09:07 | MHC.OFFVIS ---
Intake Vital Signs 01/03/24 09:09 Height 6 ft Weight 168 lb BMI 22.8 BP 96/52 L Blood Pressure Location Lt brachial Position Sitting Respiration 17 Pulse 65 Pulse Source Pulse Oximeter Pulse Oximetry (%) 100 Oxygen Delivery Method Room Air Intake Visit Reasons: Follow up-CONF Intake Note: Pt presents for 5 month follow up for frequent falls. Shampoo Assistant Required: No Allergies No Known Allergies Allergy (Verified 01/03/24 09:08) Medication List - Last Reconciled 01/03/24 by Louisa Toledo MD acetaminophen (Tylenol) 650 mg PO Q6H PRN carbidopa-levodopa 25-100 mg 1and 1/2 tabs 6 times a day cyanocobalamin (vitamin B-12) 1,000 mcg PO DAILY entacapone 200 mg PO QID midodrine 2.5 mg PO TID 30 days pimavanserin (Nuplazid) 34 mg PO DAILY HPI HPI Comments History of Present Illness Details 68 y/o male with Parkinson's disease r/t psychosis, multiple falls presents with his for follow up.His Right UE has been dislocated and fractured 2 years ago but was able to fix it by ortho and it causes more disability.He still tries to walk with cane and walker. He has been seen by [facility] and is waiting for Custodial placement. He also has hypotension with dizziness. Pt reports his dyskinesias has been better and hallucination almost resolved with Nuplazid 34 mg. His hallucinations increased recently but had UTI which he is on antibiotics. He is on Sinemet 1.5 tabs six times a day. He has home mortgage disclosure act specialist, and get help 7 days a week. Neuropathy has improved with b 12. [facility] Medical History Falls Hallucinations Parkinson disease Surgical History H/O total knee replacement Social History Alcohol intake: never Patient Tobacco Use Status: Former Tobacco user Substance Use Type: Marijuana Current occupational status: disabled Current occupation: rt hAND Physical Exam Vital Signs: Last Vital Signs Pulse 65 01/03/24 09:09 Resp 17 01/03/24 09:09 BP 96/52 L 01/03/24 09:09 Pulse Ox 100 01/03/24 09:09 Oxygen Delivery Method Room Air 01/03/24 09:09 BMI result Body Mass Index 22.8 Const General: cooperative Orientation/consciousness: patient oriented x3 Limitations: ambulation with cane Resp Effort & Inspection: normal respiratory effort and able to speak in complete sentences Neuro Other: Moderate dyskinesias of upper body. speech - slurred Right Ue- shoulder dislocated No tremors General: patient oriented x3 and moves all extremities Extrem Other: right upper extremity weakness. Psych Affect: normal affect Assessment & Plan Assessment & Plan (1) Parkinson's disease: Code(s): G20 - Parkinson's disease (2) Hallucinations: Code(s): R44.3 - Hallucinations, unspecified (3) Falls: Code(s): W19.XXXA - Unspecified fall, initial encounter Plan Advised patient to continue sinemet 25/100 1.5 tab 6 times a day. continue nuplazid 34 mg qd and comtan 200 mg qid. Patient is at high risk falls even with cane or walker - transport /motorized wheelchair will help with quality of life correctional guard care facility will be an ideal situation for him -his girlfriend and HCP is looking around Custodial Medications: New [WHeel chair] As directed 1 ea 0RF G20 - Parkinson's disease Changed From midodrine do not give last dose of day after 6PM or within 4 hrs of bedtime 2.5 mg PO BID 30 days 60 tabs 3RF To midodrine do not give last dose of day after 6PM or within 4 hrs of bedtime 2.5 mg PO TID 30 days 90 tabs 3RF Coding Level of Care Code Est Pt Level 4 (69721) Diagnoses Parkinson's disease G20 Hallucinations R44.3 Falls W19.XXXA
[2024-01-03 09:09] VITALS: BP 96/52; PULSE 65; RESP 17; O2SAT 100; BMI 22.8
== END 2024-01-03 09:46 | disposition home or self-care (01) ==
PROVIDERS: PCP Nurse Practitioner Family; Visit Provider Psychiatry & Neurology Neurology
DX: G20.B1 Parkinson's disease with dyskinesia, without mention of fluctuations (principal); F06.0 Psychotic disorder with hallucinations due to known physiological condition; R29.6 Repeated falls
CPT/HCPCS: 99214

== ENCOUNTER → 2024-01-03 09:01 | Outpatient (BNVA) | payer MEDICARE, MEDICAID, SELFPAY | PROVIDERS: PCP Nurse Practitioner Family; Visit Provider Psychiatry & Neurology Neurology | DX: G20.A1 Parkinson's disease without dyskinesia, without mention of fluctuations (principal); R44.3 Hallucinations, unspecified; Z91.81 History of falling | CPT/HCPCS: 99212 ==

== ENCOUNTER 2024-07-31 09:23 | Outpatient (AMB) | payer MEDICARE, MEDICAID, SELFPAY ==
--- NOTE | 2024-07-31 09:23 | MHC.OFFVIS ---
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 He was unable to come today for visit duet to frequent falls . He is on hospice now due to parkinsons disease . He has significant falls 4-5 falls/week, very confused, in chronic pain . He has muscle spasms- ativan and clonazepam made his falls worse. He was on oxycodone which he did not respond. He also has hypotension with dizziness.In the last 2 weeks his midodrine was increased 10mg tid but his BP was still low . Hospice MD added florinef - his BP was still low Pt reports his dyskinesias has been better and hallucination almost resolved with Nuplazid 34 mg. His sinemet was decreased to 1.5 tabs 4-5 times a day He has home specialist, and get help 7 days a week. Neuropathy has improved with b 12. He is very confused at night PFSH Medical History Falls Hallucinations Parkinson disease Surgical History H/O total knee replacement Social History Alcohol intake: never Patient Tobacco Use Status: Former Tobacco user Substance Use Type: Marijuana Current occupational status: disabled Current occupation: rt hAND Telehealth Telehealth Telehealth Platform: Telephone Location of provider rendering services: practice address Location of patient: address on file Patient Identification confirmed using: Name, : Yes Telehealth method: voice only Patient verbally consented to treatment: Yes Patient verbally consented to billing insurance company: Yes Patient informed of any privacy concerns related to visit: Yes Minutes spent on Phone/Video with Pt.: 16 Assessment & Plan Assessment & Plan (1) Parkinson's disease: Code(s): G20 - Parkinson's disease Category: Medical Qualifiers: Dyskinesia presence: with dyskinesia Fluctuating manifestations: with fluctuating manifestations Qualified Code(s): G20.B2 - Parkinson's disease with dyskinesia, with fluctuations (2) Hallucinations: Code(s): R44.3 - Hallucinations, unspecified Category: Medical (3) Falls: Code(s): W19.XXXA - Unspecified fall, initial encounter Category: Medical Qualifiers: Encounter type: subsequent encounter Qualified Code(s): W19.XXXD - Unspecified fall, subsequent encounter Plan Decrease sinemet 25/100 1 tab 5 times a day continue nuplazid 34 mg qd and comtan 200 mg qid. Patient is at high risk falls even with cane or walker - transport /motorized wheelchair will help with quality of life Midodrine 10mg tid florinef will consider droxidopa intermediate accountant care facility will be an ideal situation for him -his girlfriend and HCP is looking around [facility] currently on Hospice. supportive care. Coding Level of Care Code Tele Est Pt Level 4 (46459) Diagnoses Parkinson's disease with dyskinesia and fluctuating manifestations G20.B2 Dyskinesia presence: with dyskinesia Fluctuating manifestations: with fluctuating manifestations Hallucinations R44.3 Fall, subsequent encounter W19.XXXD Encounter type: subsequent encounter
== END 2024-07-31 10:37 | disposition home or self-care (01) ==
PROVIDERS: PCP Nurse Practitioner Family; Visit Provider Psychiatry & Neurology Neurology
DX: G20.B2 Parkinson's disease with dyskinesia, with fluctuations (principal); R44.3 Hallucinations, unspecified; W19.XXXD Unspecified fall, subsequent encounter
CPT/HCPCS: 99442

== ENCOUNTER → 2024-07-31 09:23 | Outpatient (BNVA) | payer MEDICARE, MEDICAID, SELFPAY | PROVIDERS: PCP Nurse Practitioner Family; Visit Provider Psychiatry & Neurology Neurology ==